=== PATIENT | female | born 1995 | race American Indian/Alaskan Native ===

== ENCOUNTER 2020-06-16 21:55 | Emergency (ER) | payer SELFPAY ==
--- NOTE | 2020-06-16 22:34 | EDM.PDOC ---
ED HPI GENERAL MEDICAL PROBLEM - General Chief Complaint: General Stated Complaint: BREAST PAIN FEVER Time Seen by Provider: 06/16/20 22:13 Source of Information: Reports: Patient History Limitations: Reports: No Limitations - History of Present Illness INITIAL COMMENTS - FREE TEXT/NARRATIVE: Mrs. Mcgovern is a very pleasant 24-year-old woman who delivered about 5-1/2 weeks ago, and is breast-feeding. This is her first child. She now presents to the ED stating that she developed left breast pain this morning, which has become progressively worse. Milking the breast is painful, therefore she has been doing less of it over the course of the day. She states that she has tried massaging the breast, a hot shower, a heating pad, hot water with Epsom salts, and manually expressing milk, all without relief. She states that she took 1 g of acetaminophen around 20:00 night, and that she had a temperature of 100.2 degrees just prior to coming to the ED. No prior similar problems. Here in the ED, the patient is found to be hemodynamically stable, afebrile, saturating 96% on room air. Other than the left breast tissue, the patient denies having a recent fever, chills, sore throat, ear pain, nasal or sinus congestion, cough, dyspnea, chest pain, palpitations, nausea, vomiting, constipation, diarrhea, abdominal pain, urinary symptoms, recent weight gain or weight loss, recent bloody bowel movements or black bowel movements, recent joint aches, headaches, or rashes. The patient's PCP is Luz Maria Bowie NP. Her Soaker Meat is Dr. Zahra Ziegler, at [facility]. Her Student Life Coordinator is Dr. Spencer Umana. Left Breast Pain Score (Numeric/FACES): 8 - Related Data Allergies Allergy/AdvReac Type Severity Reaction Status Date / Time cephalexin [From Keflex] Allergy Severe Vomiting Verified 06/16/20 22:08 Home Meds: Home Meds Dicloxacillin 1 cap PO Q6H #28 cap 06/16/20 [Rx] Past Medical History HEENT History: Reports: Impaired Vision Endocrine/Metabolic History: Reports: Obesity/BMI 30+ Hematologic History: Reports: Other (See Below) (Factor V Leiden deficiency, untreated) - Past Surgical History HEENT Surgical History: Reports: Oral Surgery (wisdom teeth extraction) Neurological Surgical History: Reports: Lumbar Spine (L5-S1 microdiscectomy 2014, 2018) Musculoskeletal Surgical History: Reports: Other (See Below) (Left thumb repair) Social & Family History - Family History Family Medical History: Noncontributory - Tobacco Use Smoking Status *Q: Never Smoker - Caffeine Use Caffeine Use: Reports: Other Caffeine Use Comment: occasionally - Alcohol Use Alcohol Use History: Yes Alcohol Use Frequency: Socially - Recreational Drug Use Recreational Drug Use: No - Living Situation & Occupation Living situation: Reports: , with Spouse, with Family (1 child + custody of niece) Occupation: Unemployed ED ROS GENERAL - Review of Systems Review Of Systems: Comprehensive ROS is negative, except as noted in HPI. ED EXAM, GENERAL - Physical Exam Exam: See Below Exam Limited By: No Limitations General Appearance: Alert, WD/WN, No Apparent Distress Eye Exam: Bilateral Eye: EOMI, Normal Inspection Ears: Normal External Exam, Hearing Grossly Normal Nose: Normal Inspection Throat/Mouth: Normal Inspection, Normal Lips, Normal Voice, No Airway Compromise Head: Atraumatic, Normocephalic Neck: Normal Inspection, Full Range of Motion Respiratory/Chest: Other (Left breast with a very subtle area of erythema to the superior breast, just left of midline. No induration to this area, although the patient does report that it is tender to palpation.) Course - Vital Signs Last Recorded V/S: Last Vital Signs Temp 37.1 C 06/16/20 22:03 Pulse 99 06/16/20 22:03 Resp 18 06/16/20 22:03 BP 118/79 06/16/20 22:03 Pulse Ox 96 06/16/20 22:03 - Orders/Labs/Meds Meds: Medications Discontinued Medications Generic Name Dose Route Start Last Admin Trade Name Freq PRN Reason Stop Dose Admin Dicloxacillin Sodium 500 mg 06/16/20 22:28 06/16/20 23:09 Dicloxacillin PO 06/16/20 22:29 Not Given ONETIME STA - Re-Assessments/Exams Free Text/Narrative Re-Assessment/Exam: 06/16/20 22:28 As above, the patient has left lactational mastitis. Because her symptoms have been going on for more than 12 hours, there is a possibility of an infection, therefore, in accordance with current guidelines, I will treat her with oral antibiotics. The patient has vomited to Keflex in the past; I will prescribe dicloxacillin 500 mg po QID x 7 days. In the meantime, the patient is to apply cold compresses and continue to express milk either by breast-feeding, pumping, or manual expression. She has a 6-week follow-up with her Soaker Meat this coming , 06/19/2020. Departure - Departure Time of Disposition: 22:30 Disposition: Home, Self-Care 01 Condition: Good Clinical Impression: Nonpurulent mastitis associated with - Discharge Information *PRESCRIPTION DRUG MONITORING PROGRAM REVIEWED*: Not Applicable *COPY OF PRESCRIPTION DRUG MONITORING REPORT IN PATIENT LAXMI: Not Applicable Prescriptions: Dicloxacillin 1 cap PO Q6H #28 cap Instructions: and Mastitis Referrals: Luz Maria Bowie NP [Primary Care Provider] - Zahra Ziegler MD [Ordering Only Provider] - Forms: ED Department Discharge Additional Instructions: You were seen in the emergency room after developing left breast pain this morning with mild redness. Based on your history and physical examination, you are suffering from lactational mastitis. You have been started on the antibiotic dicloxacillin, and a prescription for dicloxacillin has been sent to [facility] in [place]. Take 1 tablet of dicloxacillin every 6 hours, starting tomorrow morning, 06/17/2020, as prescribed. Finish the entire prescription unless told otherwise by your doctor. You may take [id number] Tylenol or ibuprofen as needed for discomfort. We also recommend that you apply cold compresses, and make sure that you keep your left breast completely, either by continued breast-feeding, pumping, or hand expression, or some combination of them. There is no reason to stop breast- feeding. Follow-up with your Soaker Meat, Dr. Zahra Ziegler, and your previously scheduled appointment this coming , 06/21/2020. If any other problems, please do not hesitate to return to the ER. Sepsis Event Note (ED) - Evaluation Sepsis Screening Result: No Definite Risk - Focused Exam Vital Signs: Vital Signs Temp Pulse Resp BP Pulse Ox 06/16/20 22:03 37.1 C 99 18 118/79 96
== END 2020-06-16 23:15 | disposition home or self-care (01) ==
LOC: JD.ED 21:55
DX: O91.23 Nonpurulent mastitis associated with lactation (principal); O99.215 Obesity complicating the puerperium; Z88.1 Allergy status to other antibiotic agents
CPT/HCPCS: 99283

== ENCOUNTER 2024-08-15 13:12 | Observation (INO) | payer MEDICAID ==
[2024-08-15] MEDS ORDERED: Calcium Gluconate 10% 1 GM/10 ML SDV IV PRN (13:39)
[2024-08-15] MEDS: Lactated Ringers 1,000 ML IV SCH (14:02)
[2024-08-15] MEDS: Magnesium Sulfate/Water Premix 2 GM in Premix Bag 1 BAG IV ONE (14:03)
[2024-08-15] MEDS: Betamethasone Acetate/Betamethasone Sod Phosphate 6 MG/1 ML MDV IM ONE (14:07)
[2024-08-15] MEDS: Magnesium Sulfate/Water Premix 4 GM in Premix Bag 1 BAG IV ONE (14:14)
[2024-08-15 14:28] LABS: CREATININE,URINE RAND 25.1 mg/dL (30.0-125.0); PROTEIN CREATININE RATIO,URINE 478.1 mg/g (0-149)
[2024-08-15] MEDS: Magnesium Sulfate/Water Premix 40 GM/1,000 ML BAG IV SCH (14:37)
[2024-08-15 14:54] LABS: BASOPHILS PERCENT AUTO 0.4 % (0.0-1.0); EOSINOPHILS PERCENT AUTO 0.1 % (0.0-6.0); HEMOGLOBIN 12.3 gm/dl (12.0-16.0); IMMATURE GRAN ABSOLUTE AUTO 0.03 K/mm3 (0.00-0.05); IMMATURE GRAN PERCENT AUTO 0.4 % (0.0-0.4); LYMPHOCYTES ABSOLUTE AUTO 1.4 K/mm3 (1.0-4.8); LYMPHOCYTES PERCENT AUTO 18.9 % (24.0-44.0); MEAN CORPUSCULAR HEMOGLOBIN 28.9 pg (28.0-32.0); MEAN CORPUSCULAR HGB CONC 34.2 g/dl (32.0-36.0); MEAN CORPUSCULAR VOLUME 84.7 fl (83.0-99.0); MEAN PLATELET VOLUME 9.6 fl (9.4-12.3); MONOCYTES ABSOLUTE AUTO 0.3 K/mm3 (0.0-0.8); MONOCYTES PERCENT AUTO 3.7 % (0.0-8.0); NEUTROPHILS ABSOLUTE AUTO 5.7 K/mm3 (1.8-7.7); NEUTROPHILS PERCENT AUTO 76.5 % (41.0-71.0); PLATELET COUNT,PLT 279 K/mm3 (150-400); RED BLOOD CELL COUNT 4.25 M/mm3 (4.10-5.30); WHITE BLOOD CELL COUNT,WBC 7.47 K/mm3 (3.9-11.3)
[2024-08-15 15:06] LABS: CREATININE 0.7 mg/dL (0.55-1.02); EST CRCL DRUG DOSING (CG) 83.64 mL/min; URIC ACID 6.2 mg/dL (2.6-6.0)
[2024-08-15] MEDS ORDERED: Sodium Chloride 0.9% 10 ML Syringe FLUSH PRN (17:10)
[2024-08-15] MEDS ORDERED: Sodium Chloride 0.9% 10 ML Syringe FLUSH SCH (21:00)
== END 2024-08-15 15:20 ==
LOC: JD.OB 13:12
PROVIDERS: ADMIT Obstetrics & Gynecology; ATTEND Obstetrics & Gynecology
DX: O14.10 Severe pre-eclampsia, unspecified trimester (principal); O16.9 Unspecified maternal hypertension, unspecified trimester; O99.210 Obesity complicating pregnancy, unspecified trimester; E66.9 Obesity, unspecified; Z68.30 Body mass index [BMI] 30.0-30.9, adult; Z79.899 Other long term (current) drug therapy; Z88.8 Allergy status to other drugs, medicaments and biological substances
CPT/HCPCS: 36415; 59025; 82565; 82570; 83615; 84156; 84450; 84460; 84520; 84550; 85025; J0702; J3475; J7120